=== PATIENT | female | born 1955 | race Caucasian/White ===

== ENCOUNTER → 2016-12-10 | Outpatient (CLI) | payer MEDICARE ==
--- NOTE | 2016-12-10 14:03 | REPMRS ---
Patient History The patient states she had a clinical breast exam in No known family history of cancer. Digital Woman Screen Mammo: December 10, 2016 - Exam #: [id number] Bilateral CC and MLO view(s) were taken. Technologist: Keerthi Banegas, Technologist Prior study comparison: May 28, 2015, digital woman screen mammo performed at [facility]. October 15, 2013, digital woman screen mammo performed at [facility]. March 16, 2012, digital mammo diagnostic bilateral, performed at [facility]. FINDINGS: The breast tissue is almost entirely fat. There has been no change in the appearance of the mammogram from the prior studies. There is no interval development of dominant mass, architectural distortion, or clustered microcalcification typical of malignancy. ASSESSMENT: BI-RADS/ACR category 1 mammogram. Negative. Recommendation Routine screening mammogram of both breasts in 1 year (for women over age 40). This mammogram was interpreted with the aid of an FDA-approved computer-aided dectection system. Electronically Signed By: Sukhwinder Luevano MD 12/10/16 [id number]
== END ==
LOC: M WHC 12:59
PROVIDERS: ATTEND Family Medicine
DX: Z12.31 Encounter for screening mammogram for malignant neoplasm of breast (principal)

== ENCOUNTER → 2017-03-14 | Outpatient (REF) | payer MEDICARE, MEDICAID ==
[2017-03-14 20:01] LABS: PERCENT SATURATION 11.9 % (13.2-37.4)
== END ==
LOC: M LAB REF 16:38
PROVIDERS: ATTEND Internal Medicine
DX: D50.9 Iron deficiency anemia, unspecified (principal)

== ENCOUNTER → 2017-04-15 | Outpatient (CLI) | payer MEDICARE ==
[~2017-04-15] VITALS: Ht 157.5 cm; Wt 89.4 kg
[~2017-04-15] MED LIST: GAST100C PO; HYDR10T PO; HYDR25T PO; IRON50TA PO; LEVO112T2 PO; LIDOCAINE 2% INJ 100 MG/5 ML SDV (FOR ANES.) As Ordered ONE; MONT10TA2 PO; MULT1TAB10 PO; NS 1,000 ML IV ONE; PRED20TA PO; PROPOFOL 200 MG/20 ML VIAL As Ordered ONE; RANI300T PO
--- NOTE | 2017-04-15 10:57 | ROOR ---
Patient Name: Bibi Tse Procedure Date: 04/15/2017 10:41 AM Date of : 1955 Age: 61 Room: [facility] Gender: Female Note Status: Finalized Procedure: Upper GI endoscopy Indications: Iron deficiency anemia Providers: Adam BEY MD Referring MD: Daina Spear DO Requesting Provider: Medicines: Monitored Anesthesia Care Complications: No immediate complications. Procedure: Pre-Anesthesia Assessment: - The heart rate, respiratory rate, oxygen saturations, blood pressure, adequacy of pulmonary ventilation, and response to care were monitored throughout the procedure. The Endoscope was introduced through the mouth, and advanced to the third part of duodenum. The upper GI endoscopy was accomplished without difficulty. The patient tolerated the procedure well. Findings: The examined esophagus was normal. A large hiatal hernia with a few Rickie lesion/erosions was found. The Z-line was 31 cm from the incisors. Scattered mild inflammation was found in the gastric antrum. Biopsies were taken with a cold forceps for histology. The examined duodenum was normal. Biopsies for histology were taken with a cold forceps for evaluation of celiac disease. Impression: - Normal esophagus. - Large hiatal hernia with a few "Rickie lesion" erosions. - Mild gastritis. Biopsied. - Normal examined duodenum. Biopsied. Recommendation: - Use Prilosec (omeprazole) 40 mg PO BID. - Recommend an iron supplement. - Hiatal hernia may be cause for iron deficit anemia. If anemia not well controlled with Omeprazole and iron supplement, the hernia should be repaired surgically. If anemia is well controlled, then observe. Adam Bey MD Adam BEY MD 04/15/2017 10:56:55 AM This report has been signed electronically. Number of Addenda: 0 Note Initiated On: 04/15/2017 10:41 AM Estimated Blood Loss: Estimated blood loss: none.
--- NOTE | 2017-04-15 11:18 | ROOR ---
Patient Name: Bibi Tse Procedure Date: 04/15/2017 10:42 AM Date of : 1955 Age: 61 Room: [facility] Gender: Female Note Status: Finalized Procedure: Colonoscopy Indications: Iron deficiency anemia, (s/p piecemeal excision of large flat villous cecal polyp [id number]) Providers: Adam BEY MD Referring MD: Daina Spear DO Requesting Provider: Medicines: Monitored Anesthesia Care Complications: No immediate complications. Procedure: Pre-Anesthesia Assessment: - The heart rate, respiratory rate, oxygen saturations, blood pressure, adequacy of pulmonary ventilation, and response to care were monitored throughout the procedure. The Colonoscope was introduced through the anus and advanced to 5 cm into the ileum. The colonoscopy was performed without difficulty. The patient tolerated the procedure well. The quality of the bowel preparation was good. Findings: The perianal and digital rectal examinations were normal. A diminutive polyp was found in the sigmoid colon. The polyp was sessile. The polyp was removed with a cold snare. Resection and retrieval were complete. The exam was otherwise without abnormality on direct and retroflexion views. The terminal ileum appeared normal. Impression: - One diminutive polyp in the sigmoid colon, removed with a cold snare. Resected and retrieved. - The colon examination was otherwise normal on direct and retroflexion views. - The examined portion of the ileum was normal. Recommendation: - Repeat colonoscopy in 3 years for surveillance. Adam Bey MD Adam BEY MD 04/15/2017 11:17:48 AM This report has been signed electronically. Number of Addenda: 0 Note Initiated On: 04/15/2017 10:42 AM Estimated Blood Loss: Estimated blood loss: none.
[2017-04-15 11:52] VITALS: BP 109/55
== END | disposition home or self-care (01) ==
LOC: M OPP 09:57
PROVIDERS: ATTEND Internal Medicine Gastroenterology
DX: D50.9 Iron deficiency anemia, unspecified (principal); D12.5 Benign neoplasm of sigmoid colon; K29.70 Gastritis, unspecified, without bleeding; K44.9 Diaphragmatic hernia without obstruction or gangrene; K25.9 Gastric ulcer, unspecified as acute or chronic, without hemorrhage or perforation; Z86.010 Personal history of colon polyps; E03.9 Hypothyroidism, unspecified; R12 Heartburn; M19.90 Unspecified osteoarthritis, unspecified site; M54.9 Dorsalgia, unspecified; Z78.0 Asymptomatic menopausal state; D47.0 Mast cell neoplasms of uncertain behavior; Z86.79 Personal history of other diseases of the circulatory system; Z87.891 Personal history of nicotine dependence; Z91.040 Latex allergy status; Z91.013 Allergy to seafood; Z88.3 Allergy status to other anti-infective agents; Z88.8 Allergy status to other drugs, medicaments and biological substances; Z88.1 Allergy status to other antibiotic agents; Z88.5 Allergy status to narcotic agent; Z79.52 Long term (current) use of systemic steroids; Z79.899 Other long term (current) drug therapy; Z80.1 Family history of malignant neoplasm of trachea, bronchus and lung; Z80.6 Family history of leukemia

== ENCOUNTER → 2017-08-29 | Outpatient (CLI) | payer MEDICARE ==
[~2017-08-29] MED LIST changes: +HYDR-3363 PO; +HYDR-643 PO; -HYDR10T PO; -HYDR25T PO; -LIDOCAINE 2% INJ 100 MG/5 ML SDV (FOR ANES.) As Ordered ONE; -NS 1,000 ML IV ONE; -PROPOFOL 200 MG/20 ML VIAL As Ordered ONE
--- NOTE | 2017-08-29 19:23 | REP ---
Left foot four views: There is a osteoarthritis of the great toe MTP articulation and hallux valgus. There is mild joint space narrowing of the DIP and PIP articulations. Mineralization is normal. There is no fracture or dislocation. There are no calcifications or foreign bodies. 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 Signed by Jalil Calderón MD 08/29/2017 07:14 P
== END ==
LOC: M WUC 17:47
PROVIDERS: ATTEND Physician Assistant
DX: M79.672 Pain in left foot (principal)

== ENCOUNTER 2017-10-10 16:35 | Emergency (ER) | payer OTHER, MEDICARE ==
[~2017-10-10] VITALS: Ht 157.5 cm; Wt 90.6 kg
[2017-10-10] MEDS ORDERED: OMEP20CA3 PO (16:44)
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
[2017-10-10 20:31] VITALS: BP 147/81
== END 2017-10-10 20:32 | disposition home or self-care (01) ==
LOC: M ED 16:35
DX: S13.4XXA Sprain of ligaments of cervical spine, initial encounter (principal); S46.801A Unspecified injury of other muscles, fascia and tendons at shoulder and upper arm level, right arm, initial encounter; V40.6XXA Car passenger injured in collision with pedestrian or animal in traffic accident, initial encounter; Y92.410 Unspecified street and highway as the place of occurrence of the external cause; Y93.89 Activity, other specified; Y99.9 Unspecified external cause status

== ENCOUNTER → 2018-01-13 | Outpatient (REF) | payer MEDICARE, MEDICAID ==
[2018-01-13 18:57] LABS: FERRITIN 16 NG/ML (8-252); IRON (FE) 68 UG/DL (50-170); PERCENT SATURATION 15.1 % (13.2-45.0); TOTAL IRON BINDING CAPACITY 449 UG/DL (250-450)
[2018-01-13 19:45] LABS: VITAMIN B12 LEVEL 305 PG/ML (247-911)
== END ==
LOC: M LAB REF 16:45
DX: D50.9 Iron deficiency anemia, unspecified (principal)
CPT/HCPCS: 83550

== ENCOUNTER → 2018-05-19 | Outpatient (REF) | payer MEDICARE, MEDICAID ==
[2018-05-19 19:08] LABS: IRON (FE) 65 UG/DL (50-170); PERCENT SATURATION 14.8 % (13.2-45.0); TOTAL IRON BINDING CAPACITY 440 UG/DL (250-450)
== END ==
LOC: M LAB REF 17:12
DX: D50.9 Iron deficiency anemia, unspecified (principal)
CPT/HCPCS: 83550

== ENCOUNTER → 2018-12-10 | Outpatient (CLI) | payer MEDICARE ==
[~2018-12-10] MED LIST changes: +B121000T PO; +IRON325T7 PO; +OMEP20CA3 PO; +ROSU10TA5 PO
--- NOTE | 2018-12-10 19:02 | ECGEPIP ---
Stationary ECG Study [facility] Test Date: 2018-12-10 Pat Name: PATY MUNOZ Department: Room: - Gender: F Environmental Program Manager: [facility] : 1955 Requested By: MELINDA Ruggiero Order Number: [id number] Reading MD: Santiago Vance Measurements Intervals Byers Rate: 85 P: 32 OR: 139 QRS: -34 QRSD: 101 T: 29 QT: 356 QTc: 425 Interpretive Statements Normal sinus rhythm Left anterior fascicular block Nonspecific ST-T wave abnormalities No significant change when compared to prior tracing of 01/01/2013 Electronically Signed On 12-10-2018 19:01:34 EST by Santiago Vance
== END ==
LOC: M EKG 09:32
PROVIDERS: ATTEND Anesthesiology
DX: Z01.818 Encounter for other preprocedural examination (principal); E78.00 Pure hypercholesterolemia, unspecified; E03.9 Hypothyroidism, unspecified; K21.9 Gastro-esophageal reflux disease without esophagitis; D47.02 Systemic mastocytosis

== ENCOUNTER 2018-12-15 12:25 | Day surgery (SDC) | payer MEDICARE ==
[~2018-12-15] VITALS: Ht 157.5 cm; Wt 92.6 kg
[~2018-12-15 12:25] MED LIST changes: +LR 1,000 ML IV ONE
[2018-12-15] MEDS ORDERED: GLYCOPYRROLATE INJ 0.2 MG/ML 2 ML VIAL As Ordered ONE (14:45)
[2018-12-15] MEDS ORDERED: VECURONIUM BROMIDE 10 MG VIAL As Ordered ONE ×2 (14:45→17:03)
[2018-12-15] MEDS ORDERED: PROPOFOL 200 MG/20 ML VIAL As Ordered ONE (14:45)
[2018-12-15] MEDS ORDERED: LIDOCAINE 2% INJ 100 MG/5 ML SDV (FOR ANES.) As Ordered ONE (14:45)
[2018-12-15] MEDS ORDERED: NEOSTIGMINE 10 MG/10 ML VIAL (J2710) As Ordered ONE (14:45)
[2018-12-15] MEDS ORDERED: dexameTHASONE 4 MG/ML 1ML VIAL (J1100) As Ordered ONE (14:45)
[2018-12-15] MEDS ORDERED: METOCLOPRAMIDE INJ 10MG/2ML VIAL (J2765) As Ordered ONE (14:45)
[2018-12-15] MEDS ORDERED: ONDANSETRON 4MG/2ML VIAL (J2405) As Ordered ONE (14:45)
[2018-12-15] MEDS ORDERED: fentaNYL 250 MCG/5 ML INJECTION (J3010) As Ordered ONE (14:47)
[2018-12-15] MEDS ORDERED: MIDAZOLAM INJ 2 MG/2 ML VIAL (J2250) As Ordered ONE (14:48)
[2018-12-15] MEDS ORDERED: BUPIVACAINE HCL 0.25% 30 ML VIAL As Ordered ONE (15:40)
[2018-12-15] MEDS ORDERED: NORCOTAB PO (16:39)
[2018-12-15] MEDS ORDERED: diphenhydrAMINE INJ 50MG/ML VIAL (J1200) As Ordered ONE (16:46)
[2018-12-15] MEDS ORDERED: PHENYLephrine HCL 500 MCG/5 ML (100MCG/ML) SYRINGE (J2370) As Ordered ONE (16:50)
[2018-12-15] MEDS ORDERED: HYDROmorphone HCL 2 MG/ML 1ML VIAL (J1170) As Ordered ONE (17:10)
[2018-12-15] MEDS ORDERED: ESMOLOL INJ 100MG/10ML VIAL As Ordered ONE (17:23)
[2018-12-15] MEDS ORDERED: PERCOCET 5MG/325MG TAB PO PRN (18:30)
[2018-12-15] MEDS ORDERED: fentaNYL 100 MCG/2 ML INJECTION (J3010) IV PRN (18:30)
[2018-12-15] MEDS ORDERED: HYDROMORPHONE HCL 0.5 MG/ 0.5 ML SYRINGE (J1170 PER 1) IV PRN (18:30)
[2018-12-15] MEDS ORDERED: LR 1,000 ML IV SCH (18:30)
[2018-12-15] MEDS ORDERED: ONDANSETRON 4MG/2ML VIAL (J2405) IV PRN (18:30)
[2018-12-15] MEDS ORDERED: ACETAMINOPHEN TAB 650MG DOSE (2X325MG) PO PRN (18:30)
[2018-12-15] MEDS ORDERED: NORCO, ANEXSIA 5/325MG TABLET (HYDROcodone/ACETAMINOPHEN) PO PRN (18:30)
[2018-12-15 19:50] VITALS: O2SAT 93
[2018-12-15 19:55] VITALS: BP 140/73
[2018-12-15 20:30] VITALS: BP 128/68
[2018-12-15 21:00] VITALS: BP 119/59
[2018-12-15 22:00] VITALS: BP 107/58
[2018-12-15 23:00] VITALS: BP 123/60
[2018-12-16] VITALS: BP 102/54
[2018-12-16 01:00] VITALS: BP 118/55
[2018-12-16 05:00] VITALS: BP 110/54
[2018-12-16] MEDS ORDERED: LEVOTHYROXINE 112MCG TABLET (0.112MG) PO SCH (06:00)
--- NOTE | 2018-12-16 09:45 | RO ---
DATE OF PROCEDURE: 12/15/2018 PREOPERATIVE DIAGNOSIS: Symptomatic gallstones. POSTOPERATIVE DIAGNOSIS: Symptomatic gallstones. PROCEDURE PERFORMED: Laparoscopic cholecystectomy. SURGEON: Cole Ojeda MD ANESTHESIA: General. INDICATIONS FOR THE PROCEDURE: The patient is a 63-year-old woman who has had right upper quadrant abdominal pain. Workup revealed cholelithiasis, and she is now for a laparoscopic cholecystectomy. OPERATIVE PROCEDURE: The patient was brought to the operating room and placed supine on the operating table. She was placed under general endotracheal anesthesia. The patient's abdomen was prepped and draped in a sterile fashion. I initially attempted to gain access in the left upper quadrant. 0.25% Marcaine was infiltrated at the trocar sites as needed. A small incision was made in the left upper quadrant, and a Veress needle was inserted. After a positive hanging drop test, the abdomen was inflated with carbon dioxide gas. With insufflation, pressures were high, and attempts to reposition the needle were unsuccessful. The Veress needle was, therefore, removed; and I elected to move to an open incision at the supraumbilical area. A midline incision was made, and this was deepened through the fascia, and the peritoneum was opened bluntly. An 11-mm trocar was inserted through this, and the abdomen was inflated without difficulty. Two skin sutures of 2-0 Vicryl were placed to close the skin around the trocar. The laparoscope was placed. Initial examination showed a normal-appearing liver. Visualized portions of the small and large bowel were normal. Two 5-mm trocars were placed in the right upper quadrant, and a 5-mm trocar was placed through the incision in the left upper quadrant. The patient was tilted to a reverse Trendelenburg position and rolled to the left. The edge of the liver was elevated, and the gallbladder was identified. The gallbladder was grasped and elevated. The gallbladder did not appear distended or acutely inflamed. Dissection was begun at the gallbladder neck. The peritoneum was opened widely using the hook cautery. With a combination of blunt and cautery dissection, the cystic duct was clearly identified. This was doubly clipped with hemoclips and divided. With further dissection, the cholecystic artery was identified, and this was also clipped and divided. The gallbladder was perforated in the course of dissection, and some bile was released into the subhepatic space. This was suctioned and irrigated until clear. The dissection continued, and the gallbladder was from the gallbladder bed. There was a very distinct tissue plane identified with minimal blood loss. The gallbladder was placed in an Endopouch. The right upper quadrant was then copiously irrigated, and final inspection showed no evidence of bleeding or bile leak. The patient was returned to a flat position. The abdomen was deflated, and the trocars were all removed. The gallbladder was recovered through the supraumbilical site. The fascia at the supraumbilical site was closed with interrupted simple sutures of 2-0 Vicryl. The skin incisions were all closed with buried 5-0 Vicryl and Steri-Strips. Light dressings were applied. The patient tolerated the procedure well without apparent complication. She was awakened in the operating room, extubated, and moved to the recovery room in stable condition. LYNNETTE
== END 2018-12-16 09:35 | disposition home or self-care (01) ==
LOC: M SDC 12:25 → M MSPAV 19:50 → M SDC 12-16 09:35
PROVIDERS: ATTEND Surgery
DX: K80.10 Calculus of gallbladder with chronic cholecystitis without obstruction (principal); E03.9 Hypothyroidism, unspecified; E78.00 Pure hypercholesterolemia, unspecified; K44.9 Diaphragmatic hernia without obstruction or gangrene; K21.9 Gastro-esophageal reflux disease without esophagitis; D64.9 Anemia, unspecified; D47.02 Systemic mastocytosis; M12.9 Arthropathy, unspecified; G43.909 Migraine, unspecified, not intractable, without status migrainosus; Z88.5 Allergy status to narcotic agent; Z88.6 Allergy status to analgesic agent; Z91.013 Allergy to seafood; Z91.040 Latex allergy status; Z91.048 Other nonmedicinal substance allergy status; Z87.891 Personal history of nicotine dependence; Z86.010 Personal history of colon polyps; Z87.81 Personal history of (healed) traumatic fracture; Z90.710 Acquired absence of both cervix and uterus
CPT/HCPCS: 47562; 88304; J1100; J1170; J1200; J2250; J2370; J2405; J2710; J2765; J3010

== ENCOUNTER → 2019-01-02 | Outpatient (REF) | payer MEDICARE ==
[~2019-01-02] MED LIST changes: -LR 1,000 ML IV ONE; +NORCOTAB PO
[2019-01-02 14:38] LABS: PERCENT SATURATION 20.2 % (13.2-45.0)
== END ==
LOC: M LAB REF 12:23
PROVIDERS: ATTEND Internal Medicine
DX: D50.9 Iron deficiency anemia, unspecified (principal)

== ENCOUNTER → 2019-02-26 | Outpatient (REF) | payer MEDICARE, MEDICAID ==
[~2019-02-26] MED LIST changes: +FERR325T82 PO; +HYDR-3715 PO; -IRON325T7 PO; -NORCOTAB PO
[2019-02-26 17:11] LABS: PERCENT SATURATION 16.5 % (13.2-45.0)
== END ==
LOC: M LAB REF 16:35
PROVIDERS: ATTEND Internal Medicine
DX: D50.9 Iron deficiency anemia, unspecified (principal)

== ENCOUNTER → 2019-06-29 | Outpatient (REF) | payer MEDICARE, MEDICAID ==
[~2019-06-29] MED LIST changes: -OMEP20CA3 PO; +OMEP20CA4 PO; -ROSU10TA5 PO; +ROSU10TA6 PO
[2019-06-29 17:16] LABS: PERCENT SATURATION 10.8 % (13.2-45.0)
== END ==
LOC: M LAB REF 16:16
PROVIDERS: ATTEND Internal Medicine
DX: D50.9 Iron deficiency anemia, unspecified (principal)

== ENCOUNTER 2019-12-22 15:48 | Emergency (ER) | payer MEDICAID, MEDICARE ==
[~2019-12-22] VITALS: Ht 157.5 cm; Wt 92.2 kg
[~2019-12-22 15:48] MED LIST changes: -MONT10TA2 PO; +MONT10TA4 PO; +OMEP1CAP73 PO; -OMEP20CA4 PO
[2019-12-22] MEDS ORDERED: BENZ200C70 (15:59)
[2019-12-22] MEDS ORDERED: ALBU83IN (15:59)
[2019-12-22] MEDS ORDERED: LEVO125T4 (15:59)
--- NOTE | 2019-12-22 17:03 | REP ---
Clinical: Cough and shortness of breath. Technique: PA and lateral. Comparison: 10/10/2017. Findings: Cardiac silhouette is normal. Large hiatal hernia unchanged. Lung garza demonstrate chronic changes. There is a vague 2 cm rounded opacity in the right upper lung zone warranting further investigation. No effusion. No pneumothorax. Skeletal structures demonstrate stable healed left rib fractures. Findings: A vague 2 cm rounded opacity in the right upper lung zone. Chest CT may be warranted for further investigation. Electronically Signed by Jeffery Smith MD 12/22/2019 04:55 P
--- NOTE | 2019-12-22 18:40 | REPVR ---
PROCEDURE INFORMATION: Exam: CT Chest Without Contrast Exam date and time: 12/22/2019 6:03 PM Age: 64 years old Clinical indication: Abnormal findings; Abnormal radiologic exam of lung or chest; Additional info: Ough, abnormal cxr (right lung lesion) TECHNIQUE: Imaging protocol: Computed tomography of the chest without contrast. 3D rendering: MIP and/or 3D reconstructed images were created by the technologist. Radiation optimization: All CT scans at this facility use at least one of these dose optimization techniques: automated exposure control; mA and/or kV adjustment per patient size (includes targeted exams where dose is matched to clinical indication); or iterative reconstruction. COMPARISON: CR Chest, 2 view PA, Lat 12/22/2019 4:41 PM FINDINGS: Lungs: Multifocal airspace infiltrates in the right upper lobe consistent with multifocal pneumonitis. 4 mm noncalcified nodule left lung base. 3 mm noncalcified nodule left lower lobe. 2 mm noncalcified nodule left upper lobe. Pleural space: Unremarkable. No pneumothorax. No pleural effusion. Heart: Unremarkable. No cardiomegaly. No pericardial effusion. Mediastinum: A large hiatal hernia is present. Aorta: Unremarkable. No aortic aneurysm. Lymph nodes: Multiple small mediastinal lymph nodes likely postinflammatory. Bones/joints: The spine demonstrates mild degenerative changes. Soft tissues: Unremarkable. IMPRESSION: 1. Multifocal airspace infiltrates in the right upper lobe consistent with multifocal pneumonitis. 2. 4 mm noncalcified nodule left lung base. 3 mm noncalcified nodule left lower lobe. 2 mm noncalcified nodule left upper lobe. For patients at low risk (minimal or absent history of smoking and of other known risk factors), no routine follow-up is indicated. For patients at high risk (history of smoking or of other known risk factors), consider optional CT at 12 months. (Andrew et al., Fleischner Society, 2017) 3. A large hiatal hernia is present. Electronically signed by: Lamine Cheng On 12/22/2019 18:39:55 PM
[2019-12-22] MEDS ORDERED: AUGM875T28 PO (19:04)
[2019-12-22] MEDS ORDERED: DIFL150T PO (19:13)
[2019-12-22] MEDS ORDERED: AUGMENTIN 875 MG TAB PO ONE (19:15)
[2019-12-22 19:16] VITALS: BP 131/69
--- NOTE | 2019-12-23 06:29 | ED PDOC ---
Post-Departure Follow-Up dr elliott faxed formal report of ct chest for fu Hunter Tapia MD Dec 23, 2019 06:29
== END 2019-12-22 19:17 | disposition home or self-care (01) ==
LOC: M ED 15:48
DX: J18.1 Lobar pneumonia, unspecified organism (principal); R91.1 Solitary pulmonary nodule; K21.9 Gastro-esophageal reflux disease without esophagitis; K44.9 Diaphragmatic hernia without obstruction or gangrene; E03.9 Hypothyroidism, unspecified; D47.02 Systemic mastocytosis; Z87.891 Personal history of nicotine dependence; Z79.899 Other long term (current) drug therapy; Z88.6 Allergy status to analgesic agent; Z88.5 Allergy status to narcotic agent; Z91.041 Radiographic dye allergy status; Z91.040 Latex allergy status; Z91.013 Allergy to seafood

== ENCOUNTER → 2019-12-25 | Outpatient (REF) | payer MEDICARE ==
[~2019-12-25] MED LIST changes: +ALBU83IN; +AUGM875T28 PO; +BENZ200C70; +DIFL150T PO; +LEVO125T4
== END ==
LOC: M LAB REF 12:49
PROVIDERS: ATTEND Internal Medicine
DX: J18.9 Pneumonia, unspecified organism (principal); R50.9 Fever, unspecified

== ENCOUNTER → 2020-04-04 | Outpatient (REF) | payer MEDICARE | LOC: M LAB REF 11:36 | PROVIDERS: ATTEND Internal Medicine | DX: R10.10 Upper abdominal pain, unspecified (principal) ==

== ENCOUNTER → 2020-04-18 | Outpatient (REF) | payer MEDICARE ==
[2020-04-18 18:39] LABS: PERCENT SATURATION 5.2 % (13.2-45.0)
== END ==
LOC: M LAB REF 17:19
PROVIDERS: ATTEND Internal Medicine
DX: D50.9 Iron deficiency anemia, unspecified (principal)

== ENCOUNTER 2020-06-17 11:45 | Day surgery (SDC) | payer OTHER, MEDICARE ==
[2020-06-17] MEDS ORDERED: LIDOCAINE 2% 100MG/5ML SDV (FOR ANES.) ONE (13:33)
[2020-06-17] MEDS ORDERED: propofoL 200 MG/20 ML VIAL ONE (13:33)
== END 2020-06-17 14:40 | disposition home or self-care (01) ==
LOC: M SDC 11:45 → MERGE 11:45 → M OPP 11:45 → M SDC 14:40
PROVIDERS: ATTEND Internal Medicine Gastroenterology
DX: Z12.11 Encounter for screening for malignant neoplasm of colon (principal); Z86.010 Personal history of colon polyps; K64.8 Other hemorrhoids; K63.5 Polyp of colon; K57.30 Diverticulosis of large intestine without perforation or abscess without bleeding; K44.9 Diaphragmatic hernia without obstruction or gangrene; D50.9 Iron deficiency anemia, unspecified; D47.02 Systemic mastocytosis; E03.9 Hypothyroidism, unspecified; Z79.899 Other long term (current) drug therapy; Z88.5 Allergy status to narcotic agent; Z88.6 Allergy status to analgesic agent; Z91.013 Allergy to seafood; Z91.040 Latex allergy status; Z87.891 Personal history of nicotine dependence

== ENCOUNTER → 2020-10-31 | Outpatient (REF) | payer MEDICARE ==
[~2020-10-31] MED LIST changes: -MONT10TA4 PO; +MONT5TAB2 PO
== END ==
LOC: M LAB REF 16:09
PROVIDERS: ATTEND Internal Medicine
DX: D50.9 Iron deficiency anemia, unspecified (principal); D51.9 Vitamin B12 deficiency anemia, unspecified

== ENCOUNTER → 2021-05-25 | Outpatient (REF) | payer OTHER ==
[~2021-05-25] MED LIST changes: +MONT10TA10 PO; -MONT5TAB2 PO
[2021-05-25 17:48] LABS: PERCENT SATURATION 10.6 % (13.2-45.0)
== END ==
LOC: M LAB REF 16:24
PROVIDERS: ATTEND Internal Medicine
DX: D50.9 Iron deficiency anemia, unspecified (principal); D51.9 Vitamin B12 deficiency anemia, unspecified

== ENCOUNTER → 2021-10-22 | Outpatient (CLI) | payer OTHER ==
[~2021-10-22] MED LIST changes: -MONT10TA10 PO; +MONT10TA97 PO
== END ==
LOC: M LABSMTC 11:03
PROVIDERS: ATTEND Pediatrics
DX: Z20.822 Contact with and (suspected) exposure to COVID-19 (principal)
CPT/HCPCS: C9803; U0003

== ENCOUNTER → 2022-01-04 | Outpatient (REF) | payer OTHER ==
[2022-01-04 17:19] LABS: PERCENT SATURATION 15.6 % (13.2-45.0)
== END ==
LOC: M LAB REF 16:13
PROVIDERS: ATTEND Internal Medicine
DX: D50.9 Iron deficiency anemia, unspecified (principal); D51.9 Vitamin B12 deficiency anemia, unspecified

== ENCOUNTER 2022-05-15 10:23 | Emergency (ER) | payer MEDICARE ==
[~2022-05-15] VITALS: Ht 157.5 cm; Wt 89.2 kg
[~2022-05-15 10:23] MED LIST changes: +ALBU2.5V10; -ALBU83IN; -LEVO125T4; +LEVO125T4 PO
[2022-05-15 10:24] VITALS: BP 155/71
[2022-05-15 12:24] LABS: BASO % 0.3 % (0.0-1.0); EOS # 0.1 10^3/uL (0.0-0.5); HEMATOCRIT 41.6 % (36.0-47.0); HEMOGLOBIN 13.1 g/dl (12.0-15.5); LYMPH # 1.4 10^3/uL (1.5-5.0); LYMPH % 19.7 % (24.0-44.0); MEAN CORPUSCULAR HEMOGLOBIN 28.8 pg (27.0-33.0); MEAN CORPUSCULAR HGB CONC 31.5 g/dl (32.0-36.5); MEAN CORPUSCULAR VOLUME 91.4 fl (80.0-96.0); MONO # 0.5 10^3/uL (0.0-0.8); MONO % 7.3 % (2.0-8.0); NEUTROPHILS % 70.3 % (36.0-66.0); PLATELET COUNT, AUTOMATED 312 10^3/uL (150-450); RED BLOOD COUNT 4.55 10^6/uL (4.00-5.40); WHITE BLOOD COUNT 7.1 10^3/uL (4.0-10.0)
[2022-05-15 12:35] LABS: INR 0.85
[2022-05-15 12:58] LABS: ALBUMIN 4.1 GM/DL (3.2-5.2); BILIRUBIN,DIRECT 0.2 MG/DL (0.0-0.2); BILIRUBIN,TOTAL 0.3 MG/DL (0.2-1.0); TOTAL PROTEIN 8.4 GM/DL (6.4-8.2)
[2022-05-15] MEDS ORDERED: BACTDSTA PO (13:11)
== END 2022-05-15 13:48 | disposition home or self-care (01) ==
LOC: M ED 10:23
DX: L03.116 Cellulitis of left lower limb (principal); M17.11 Unilateral primary osteoarthritis, right knee; M71.22 Synovial cyst of popliteal space [Baker], left knee; E22.1 Hyperprolactinemia; R22.42 Localized swelling, mass and lump, left lower limb; E03.9 Hypothyroidism, unspecified; K21.9 Gastro-esophageal reflux disease without esophagitis; D47.02 Systemic mastocytosis; Z79.890 Hormone replacement therapy; Z79.899 Other long term (current) drug therapy; Z91.041 Radiographic dye allergy status; Z91.040 Latex allergy status; Z91.013 Allergy to seafood; Z88.6 Allergy status to analgesic agent; Z88.5 Allergy status to narcotic agent

== ENCOUNTER → 2022-07-05 | Outpatient (REF) | payer MEDICARE ==
[~2022-07-05] MED LIST changes: +BACTDSTA PO
[2022-07-05 17:32] LABS: PERCENT SATURATION 12.4 % (13.2-45.0)
== END ==
LOC: M LAB REF 16:13
PROVIDERS: ATTEND Internal Medicine
DX: D50.9 Iron deficiency anemia, unspecified (principal)

== ENCOUNTER → 2022-12-07 | Outpatient (REF) | payer MEDICARE ==
[2022-12-09 21:36] LABS: ANTINUCLEAR ANTIBODIES DIRECT Negative (Negative); CYCLIC CITRULLINATED PEPTIDE 2 units (0-19)
== END ==
LOC: M LAB REF 16:29
PROVIDERS: ATTEND Internal Medicine
DX: M25.552 Pain in left hip (principal)

== ENCOUNTER → 2022-12-10 | Outpatient (CLI) | payer MEDICARE | LOC: M WUC 13:13 | PROVIDERS: ATTEND Internal Medicine | DX: M25.552 Pain in left hip (principal); M16.12 Unilateral primary osteoarthritis, left hip ==

== ENCOUNTER → 2023-04-07 | Outpatient (CLI) | payer OTHER | LOC: M WHC 13:15 | PROVIDERS: ATTEND Internal Medicine | DX: M85.851 Other specified disorders of bone density and structure, right thigh (principal); M85.852 Other specified disorders of bone density and structure, left thigh ==

== ENCOUNTER → 2023-07-07 | Outpatient (REF) | payer OTHER ==
[2023-07-07 14:35] LABS: PERCENT SATURATION 29.3 % (13.2-45.0)
[2023-07-07 14:39] LABS: FERRITIN 17.5 NG/ML (7.3-270.7)
== END ==
LOC: M LAB REF 12:46
PROVIDERS: ATTEND Internal Medicine
DX: D50.9 Iron deficiency anemia, unspecified (principal)

== ENCOUNTER 2023-10-12 14:30 | Observation (INO) | payer OTHER ==
[~2023-10-12] VITALS: Ht 157.5 cm; Wt 92.0 kg
[~2023-10-12 14:30] MED LIST changes: -LEVO150T42 PO; -OMEP40CA5 PO; -SUCR1TAB56 PO; -VITMTA PO
[2023-10-12] MEDS ORDERED: ROSU10TA6 PO (14:39)
[2023-10-12] MEDS ORDERED: VITMTA PO (14:39)
[2023-10-12 15:42] LABS: BASO % 0.4 % (0.0-1.0); EOS # 0.2 10^3/uL (0.0-0.5); EOS % 2.3 % (0.0-3.0); HEMATOCRIT 33.1 % (36.0-47.0); HEMOGLOBIN 10.5 g/dl (12.0-15.5); LYMPH # 1.7 10^3/uL (1.5-5.0); LYMPH % 21.3 % (24.0-44.0); MEAN CORPUSCULAR HEMOGLOBIN 27.9 pg (27.0-33.0); MEAN CORPUSCULAR HGB CONC 31.7 g/dl (32.0-36.5); MEAN CORPUSCULAR VOLUME 87.8 fl (80.0-96.0); MONO # 0.9 10^3/uL (0.0-0.8); MONO % 10.7 % (2.0-8.0); NEUTROPHILS # 5.3 10^3/uL (1.5-8.5); NEUTROPHILS % 64.8 % (36.0-66.0); PLATELET COUNT, AUTOMATED 301 10^3/uL (150-450); RED BLOOD COUNT 3.77 10^6/uL (4.00-5.40); WHITE BLOOD COUNT 8.1 10^3/uL (4.0-10.0)
[2023-10-12 15:55] LABS: INR 1.03; PARTIAL THROMBOPLASTIN TIME 25.1 SECONDS (24.8-34.2); PROTHROMBIN TIME 13.1 SECONDS (12.5-14.5)
[2023-10-12 16:10] LABS: LIPASE 26 U/L (12-53)
[2023-10-12 16:12] LABS: ALBUMIN 3.5 G/DL (3.2-5.2); ALKALINE PHOSPHATASE 77 U/L (46-116); ALT/SGPT 16 U/L (7.0-40); AST/SGOT 20 U/L (<34); BILIRUBIN,DIRECT < 0.1 MG/DL (<0.4); BILIRUBIN,TOTAL 0.3 MG/DL (0.3-1.2)
[2023-10-12] MEDS ORDERED: SUCR1TAB56 PO (18:09)
[2023-10-12] MEDS ORDERED: OMEP40CA5 PO (18:09)
[2023-10-12] MEDS: READI-CAT 2 PO SCH ×2 (20:27→20:56)
[2023-10-12] MEDS ORDERED: ONDANSETRON 4MG 2ML VIAL IV PRN (23:30)
[2023-10-12] MEDS ORDERED: LR 1,000 ML IV SCH (23:30)
[2023-10-12] MEDS: PANTOPRAZOLE 40MG VIAL IV SCH (23:48)
[2023-10-13 00:12] LABS: RSV AMPLIFICATION NEGATIVE (NEGATIVE)
[2023-10-13 02:05] VITALS: BP 140/80; TEMP 97.7; O2SAT 95
[2023-10-13 03:15] LABS: HEMATOCRIT 29.3 % (36.0-47.0); HEMOGLOBIN 9.2 g/dl (12.0-15.5)
[2023-10-13 05:50] VITALS: BP 115/64; TEMP 97.7; O2SAT 96
[2023-10-13] MEDS ORDERED: LEVOTHYROXINE 125MCG TABLET (0.125MG) PO SCH (06:00)
[2023-10-13 07:40] LABS: HEMATOCRIT 29.8 % (36.0-47.0); HEMOGLOBIN 9.5 g/dl (12.0-15.5); MEAN CORPUSCULAR HEMOGLOBIN 28.2 pg (27.0-33.0); MEAN CORPUSCULAR HGB CONC 31.9 g/dl (32.0-36.5); MEAN CORPUSCULAR VOLUME 88.4 fl (80.0-96.0); PLATELET COUNT, AUTOMATED 267 10^3/uL (150-450); RED BLOOD COUNT 3.37 10^6/uL (4.00-5.40); WHITE BLOOD COUNT 5.3 10^3/uL (4.0-10.0)
[2023-10-13] MEDS ORDERED: ACETAMINOPHEN 500 MG TAB PO ONE (08:00)
[2023-10-13] MEDS ORDERED: D5W/0.45% SODIUM CHLORIDE 1,000 ML IV SCH (08:00)
[2023-10-13] MEDS ORDERED: METOCLOPRAMIDE INJ 10MG/2ML VIAL IV ONE (08:00)
[2023-10-13 08:13] LABS: BLOOD UREA NITROGEN 7 MG/DL (9-23); CALCIUM LEVEL 8.2 MG/DL (8.3-10.6); CARBON DIOXIDE LEVEL 28 MMOL/L (20-31); CHLORIDE LEVEL 107 MMOL/L (98-107); CREATININE FOR GFR 0.69 MG/DL (0.55-1.30); GLOMERULAR FILTRATION RATE > 60.0 (>45); GLUCOSE, FASTING 119 MG/DL (74-106); SODIUM LEVEL 143 MMOL/L (136-145)
[2023-10-13] MEDS ORDERED: LEVO150T42 PO (08:14)
[2023-10-13] MEDS ORDERED: HOME MED LIST COMPLETE! XX SCH (08:15)
[2023-10-13] MEDS ORDERED: LEVOTHYROXINE 25MCG TABLET (0.025MG) PO ONE (09:15)
[2023-10-13 12:14] LABS: HEMATOCRIT 29.9 % (36.0-47.0); HEMOGLOBIN 9.5 g/dl (12.0-15.5)
[2023-10-13] MEDS: PANTOPRAZOLE 40MG VIAL IV SCH (13:13)
[2023-10-13 14:00] VITALS: BP 119/48; TEMP 97.7; O2SAT 98
[2023-10-13] MEDS ORDERED: propofoL 200 MG/20 ML VIAL As Ordered ONE ×2 (14:32→14:37)
[2023-10-13] MEDS ORDERED: LIDOCAINE 2% 100MG/5ML SDV (FOR ANES.) As Ordered ONE (14:33)
[2023-10-13] MEDS ORDERED: SIMETHICONE 40MG/0.6ML DROPS 30ML As Ordered ONE (14:50)
[2023-10-13 15:26] VITALS: TEMP 97.5
[2023-10-13 15:41] VITALS: BP 115/56; O2SAT 95
[2023-10-13] MEDS ORDERED: FERROUS SULFATE 325MG TAB PO SCH (21:00)
[2023-10-14] MEDS ORDERED: LEVOTHYROXINE 150MCG TABLET (0.15MG) PO SCH (06:00)
[2023-10-14] MEDS ORDERED: SUCRALFATE 1 GM TAB PO SCH (12:00)
[2023-10-14] MEDS ORDERED: ROSUVASTATIN 10 MG TAB (CRESTOR) PO SCH (21:00)
[2023-10-14] MEDS ORDERED: FERROUS SULFATE 325MG TAB PO SCH (21:00)
[2023-10-14] MEDS ORDERED: MULTIVITAMINS/MINERALS THERAP 1 TAB PO SCH (21:00)
== END 2023-10-13 16:00 | disposition home or self-care (01) ==
LOC: M ED 14:30 → INTOOBSV 23:26 → M ED INP 23:26 → M MS5PR 10-13 02:06
PROVIDERS: ADMIT Internal Medicine; ATTEND Internal Medicine
DX: D62 Acute posthemorrhagic anemia (principal); K25.4 Chronic or unspecified gastric ulcer with hemorrhage; K92.1 Melena; K44.9 Diaphragmatic hernia without obstruction or gangrene; E66.01 Morbid (severe) obesity due to excess calories; E03.9 Hypothyroidism, unspecified; E78.00 Pure hypercholesterolemia, unspecified; Z91.041 Radiographic dye allergy status; Z91.013 Allergy to seafood; Z88.5 Allergy status to narcotic agent; Z88.8 Allergy status to other drugs, medicaments and biological substances; Z91.040 Latex allergy status; D50.9 Iron deficiency anemia, unspecified; Z79.899 Other long term (current) drug therapy
CPT/HCPCS: 36415; 43239; 74176; 80047; 80048; 80076; 82728; 83550; 83690; 85014; 85018; 85025; 85027; 85046; 85610; 85730; 86850; 86900; 86901; 87631; 88305; 93005; 96374; 96375; 96376; 99285; C9113; J2765

== ENCOUNTER → 2023-10-12 | Outpatient (REF) | payer OTHER ==
[~2023-10-12] MED LIST changes: +LEVO150T42 PO; +OMEP40CA5 PO; +SUCR1TAB56 PO; +VITMTA PO
[2023-10-12 17:01] LABS: PERCENT SATURATION 6.6 % (13.2-45.0)
[2023-10-12 17:03] LABS: FERRITIN 7.7 NG/ML (7.3-270.7)
== END ==
LOC: M LAB REF 16:22
PROVIDERS: ATTEND Internal Medicine
DX: K92.1 Melena (principal)

== ENCOUNTER → 2024-04-12 | Outpatient (CLI) | payer OTHER ==
[~2024-04-12] MED LIST changes: +LEVO150T42 PO; +OMEP40CA5 PO; -ROSU10TA6 PO; +ROSU10TA61 PO; +SUCR1TAB56 PO; +VITMTA PO
[2024-04-12 19:04] LABS: PERCENT SATURATION 16.9 % (13.2-45.0)
[2024-04-12 19:09] LABS: FERRITIN 56.9 NG/ML (7.3-270.7)
== END ==
LOC: M WUC 13:59
PROVIDERS: ATTEND Internal Medicine
DX: D64.9 Anemia, unspecified (principal); R06.2 Wheezing

== ENCOUNTER → 2024-10-16 | Outpatient (REF) | payer OTHER ==
[2024-10-16 17:56] LABS: PERCENT SATURATION 23.7 % (13.2-45.0)
[2024-10-16 17:58] LABS: FERRITIN 51.6 NG/ML (7.3-270.7)
== END ==
LOC: M LAB REF 17:23
PROVIDERS: ATTEND Internal Medicine
DX: D50.9 Iron deficiency anemia, unspecified (principal)

== ENCOUNTER 2024-12-21 06:12 | Emergency (ER) | payer MEDICARE, OTHER ==
[~2024-12-21] VITALS: Ht 154.9 cm; Wt 88.6 kg
[2024-12-21] MEDS: ONDANSETRON 4MG 2ML VIAL IV ONE (07:51)
[2024-12-21 08:29] LABS: BASO % 0.2 % (0.0-1.0); EOS # 0.1 10^3/uL (0.0-0.5); EOS % 0.6 % (0.0-3.0); HEMATOCRIT 45.8 % (36.0-47.0); HEMOGLOBIN 14.5 g/dl (12.0-15.5); LYMPH # 0.2 10^3/uL (1.5-5.0); LYMPH % 1.2 % (24.0-44.0); MEAN CORPUSCULAR HEMOGLOBIN 29.7 pg (27.0-33.0); MEAN CORPUSCULAR HGB CONC 31.7 g/dl (32.0-36.5); MEAN CORPUSCULAR VOLUME 93.7 fl (80.0-96.0); MONO % 5.8 % (2.0-8.0); NEUTROPHILS # 15.6 10^3/uL (1.5-8.5); NEUTROPHILS % 91.8 % (36.0-66.0); PLATELET COUNT, AUTOMATED 238 10^3/uL (150-450); RED BLOOD COUNT 4.89 10^6/uL (4.00-5.40)
[2024-12-21 08:53] LABS: ALKALINE PHOSPHATASE 107 U/L (35-104); ALT/SGPT 20 U/L (7.0-40); AST/SGOT 14 U/L (<34); BILIRUBIN,TOTAL 0.4 MG/DL (0.3-1.2); BLOOD UREA NITROGEN 25 MG/DL (9-23); CARBON DIOXIDE LEVEL 24 MMOL/L (20-31); CHLORIDE LEVEL 109 MMOL/L (98-107); CREATININE FOR GFR 0.93 MG/DL (0.55-1.30); GLOMERULAR FILTRATION RATE > 60.0 (>45); GLUCOSE, FASTING 168 MG/DL (74-106); POTASSIUM SERUM 5.1 MMOL/L (3.5-5.1); SODIUM LEVEL 141 MMOL/L (136-145); TOTAL PROTEIN 7.7 G/DL (5.7-8.2)
[2024-12-21 11:45] VITALS: BP 116/55; TEMP 101; O2SAT 98
[2024-12-21] MEDS ORDERED: ONDA-83 PO (11:50)
== END 2024-12-21 12:06 | disposition home or self-care (01) ==
LOC: M ED 06:12
DX: A08.11 Acute gastroenteropathy due to Norwalk agent (principal); K21.9 Gastro-esophageal reflux disease without esophagitis; K27.9 Peptic ulcer, site unspecified, unspecified as acute or chronic, without hemorrhage or perforation; Z79.83 Long term (current) use of bisphosphonates; Z79.899 Other long term (current) drug therapy; Z91.041 Radiographic dye allergy status; Z91.040 Latex allergy status; Z88.5 Allergy status to narcotic agent; Z91.013 Allergy to seafood
CPT/HCPCS: 80053; 85025; 87507; 96374; 99284; J2405

== ENCOUNTER → 2025-02-22 | Outpatient (CLI) | payer MEDICARE ==
[~2025-02-22] MED LIST changes: +ONDA-83 PO
== END ==
LOC: M WUC 12:18
PROVIDERS: ATTEND Internal Medicine
DX: M54.31 Sciatica, right side (principal)

== ENCOUNTER 2025-08-27 09:07 | Day surgery (SDC) | payer MEDICARE ==
[~2025-08-27] VITALS: Ht 157.5 cm; Wt 88.9 kg
[~2025-08-27 09:07] MED LIST changes: +ACET-907 PO; +LIDOCAINE 2% 100 MG/5 ML SDV (FOR ANES.) As Ordered ONE
[2025-08-27 10:21] VITALS: TEMP 98.9
[2025-08-27 10:36] VITALS: BP 110/51; O2SAT 98
== END 2025-08-27 10:46 | disposition home or self-care (01) ==
LOC: M OPP 09:07
PROVIDERS: ATTEND Surgery
DX: K63.5 Polyp of colon (principal); K57.30 Diverticulosis of large intestine without perforation or abscess without bleeding; Z86.0100 Personal history of colon polyps, unspecified; Z88.5 Allergy status to narcotic agent; Z88.8 Allergy status to other drugs, medicaments and biological substances; Z91.040 Latex allergy status; Z91.013 Allergy to seafood; Z79.899 Other long term (current) drug therapy

== ENCOUNTER → 2025-10-05 | Outpatient (CLI) | payer MEDICARE ==
[~2025-10-05] MED LIST changes: -BACTDSTA PO; -LIDOCAINE 2% 100 MG/5 ML SDV (FOR ANES.) As Ordered ONE; -ROSU10TA61 PO; +ROSU10TA90 PO; +SULF-8 PO
== END ==
LOC: M SLEEP 20:00
PROVIDERS: ATTEND Physician Assistant
DX: G47.33 Obstructive sleep apnea (adult) (pediatric) (principal); R40.0 Somnolence